=== PATIENT | male | born 1985 | race Caucasian/White ===

== ENCOUNTER 2021-10-28 15:38 | Emergency (ER) | payer MEDICAID ==
[~2021-10-28] VITALS: Ht 162.6 cm; Wt 70.0 kg
[2021-10-28 18:35] LABS: BASOPHILS % 0.2 % (0.0-2.0); HEMATOCRIT. 43.1 % (42.0-52.0); HEMOGLOBIN. 14.4 g/dL (14.0-18.0); LYMPHOCYTES % 4.5 % (20.0-50.0); MEAN CORPUSCULAR HEMOGLOBIN 28.4 pg (28.0-32.0); MEAN PLATELET VOLUME 7.1 fl (7.4-10.4); MONOCYTES % 5.4 % (2.0-8.0); NEUTROPHILS % 89.9 % (40.0-76.0); PLATELET 250 x1000/uL (130-400); RED BLOOD CELL COUNT 5.07 mill/uL (4.7-6.1); RED CELL DISTRIBUTION WIDTH 13.9 % (11.6-14.6)
[2021-10-28 18:40] LABS: CHLORIDE 108 mEq/L (98-107)
[2021-10-28 19:50] VITALS: BP 130/83
== END 2021-10-28 20:33 | disposition home or self-care (01) ==
LOC: ER 15:38
DX: G40.909 Epilepsy, unspecified, not intractable, without status epilepticus (principal); F32.A Depression, unspecified; F79 Unspecified intellectual disabilities
CPT/HCPCS: 36415; 80053; 85025; 99283

== ENCOUNTER 2022-08-10 17:57 | Inpatient (IN) | payer MEDICARE, MEDICAID ==
[~2022-08-10] VITALS: Ht 162.6 cm; Wt 59.0 kg
[2022-08-10] MEDS ORDERED: ONDANSETRON HCL 4MG/2ML INJ IV STA (18:11)
[2022-08-10] MEDS ORDERED: SODIUM CHLORIDE 0.9% 1,000 ML IV ONE ×2 (18:15→19:45)
[2022-08-10] MEDS ORDERED: TETANUS, DIPHTHERIA, PERTUSSIS VAC/PF 0.5ML (>10YR OLD) IM ONE (18:30)
[2022-08-10 18:31] LABS: HEMATOCRIT. 49.7 % (42.0-52.0); HEMOGLOBIN. 16.4 g/dL (14.0-18.0); MEAN CORPUSCULAR HEMOGLOBIN 30.3 pg (28.0-32.0); MEAN CORPUSCULAR VOLUME 91.9 fL (80.0-94.0); MEAN PLATELET VOLUME 7.5 fl (7.4-10.4); PLATELET 390 x1000/uL (130-400); RED BLOOD CELL COUNT 5.41 mill/uL (4.7-6.1); RED CELL DISTRIBUTION WIDTH 14.3 % (11.6-14.6)
[2022-08-10 18:51] LABS: CHLORIDE 99 mEq/L (98-107)
[2022-08-10 18:55] LABS: PLATELET ESTIMATE NORMAL
[2022-08-10 19:24] LABS: CLARITY URINE CLOUDY (CLEAR); COLOR URINE YELLOW (YELLOW); KETONES URINE TRACE (NEGATIVE); LEUKOCYTE ESTERASE URINE NEGATIVE (NEGATIVE); NITRITE URINE NEGATIVE (NEGATIVE); OCCULT BLOOD URINE 1+ (NEGATIVE); PH URINE 5.5 (4.5-8.0); PROTEIN URINE 2+ (NEGATIVE); SPECIFIC GRAVITY URINE 1.016 (1.005-1.030); UROBILINOGEN URINE 0.2 E.U./dL (0.2-1.0)
[2022-08-10 19:28] LABS: ETHANOL BLOOD < 10 mg/dL; VALPROIC ACID < 3.0 ug/mL (50-100)
[2022-08-10 19:37] LABS: *AMPHETAMINES SCREEN URINE NEGATIVE (NEGATIVE); *BARBITURATES SCREEN URINE NEGATIVE (NEGATIVE); *BENZODIAZEPINES SCREEN URINE PRESUMTIVE POSITIVE (NEGATIVE); *COCAINE SCREEN URINE NEGATIVE (NEGATIVE); CANNABINOID URINE SCREEN NEGATIVE (NEGATIVE); METHADONE URINE SCREEN NEGATIVE (NEGATIVE); OPIATES URINE SCREEN NEGATIVE (NEGATIVE); PHENCYCLIDINE URINE SCREEN NEGATIVE (NEGATIVE)
[2022-08-10] MEDS ORDERED: SODIUM BICARBONATE 8.4% 1 MEQ/ML 50ML SYR IV NR (19:45)
[2022-08-10] MEDS ORDERED: LEVETIRACETAM 500MG PREMIX 100 ML IV NR (20:00)
[2022-08-10 20:18] LABS: BG BASE EXCESS -6.1 mmol/L (-2.0-2.0); BG CARBOXYHEMOGLOBIN 0.2 % (0.5-1.5); BG DEOXYHEMOGLOBIN 2.2 % (0.0-5.0); BG HCO3 ACT 16.6 mmol/L (22.0-26.0); BG METHEMOGLOBIN 0.5 % (0.0-1.5); BG OXYGEN SATURATION 97.8 % (92.0-98.5); BG OXYHEMOGLOBIN 97.1 % (94.0-97.0); BG PCO2 26.2 mmHg (35.0-45.0); BG PH 7.419 (7.350-7.450); BG PO2 100.4 mmHg (75.0-100.0); BG SAMPLE SITE RIGHT BRACHIAL; BG TOTAL HEMOGLOBIN 14.9 g/dL (12.0-18.0); BG VENT MODE ROOM AIR
[2022-08-11] MEDS ORDERED: LORAZEPAM 0.5MG TABLET PO PRN (01:15)
[2022-08-11] MEDS ORDERED: GUAIFENESIN 200MG/10ML SUGAR FREE UDC PO PRN (01:15)
[2022-08-11] MEDS ORDERED: NA PHOS,M-B/NA PHOS,DI-BA ENEMA 118ML PR PRN (01:15)
[2022-08-11] MEDS ORDERED: MAGNESIUM/ALUMINUM HYDROXIDE/SIMETHICONE 30ML UDC PO PRN (01:15)
[2022-08-11] MEDS ORDERED: HYDROCODONE/APAP 7.5/325MG 1 TAB TABLET PO PRN (01:15)
[2022-08-11] MEDS ORDERED: DOCUSATE SODIUM 100MG CAPSULE PO PRN (01:15)
[2022-08-11] MEDS ORDERED: IPRATROPIUM/ALBUTEROL 0.5-3(2.5)MG/3ML NEB HHN PRN (01:15)
[2022-08-11] MEDS ORDERED: CLONIDINE 0.1MG TABLET PO PRN (01:15)
[2022-08-11] MEDS ORDERED: ONDANSETRON HCL 4MG/2ML INJ IV PRN (01:15)
[2022-08-11] MEDS ORDERED: HYDROCODONE/ACETAMINOPHEN 5/325MG TABLET PO PRN (01:15)
[2022-08-11] MEDS ORDERED: ACETAMINOPHEN 325MG TABLET PO PRN ×2 (01:15)
[2022-08-11] MEDS ORDERED: NALOXONE HCL 0.4MG/ML VIAL IV PRN (01:30)
[2022-08-11] MEDS ORDERED: VANCOMYCIN 1.25GM PMX (XELLIA) 250 ML IV NR ×2 (02:30→07:30)
[2022-08-11] MEDS ORDERED: PIPERACILLIN/TAZ 3.375G PREMIX 50 ML IV NR (04:00)
[2022-08-11 04:09] LABS: CHLORIDE 109 mEq/L (98-107)
[2022-08-11 04:13] VITALS: BP 127/60
[2022-08-11 05:00] VITALS: BP 122/60
[2022-08-11] MEDS ORDERED: PIPERACILLIN/TAZOBACTAM 3.375 G in DEXTROSE 5% WATER 50 ML IV SCH ×2 (07:00→14:00)
[2022-08-11 07:52] LABS: EOSINOPHILS % 0.1 % (0.0-5.0); HEMATOCRIT. 39.4 % (42.0-52.0); HEMOGLOBIN. 13.7 g/dL (14.0-18.0); MEAN CORPUSCULAR HEMOGLOBIN 29.5 pg (28.0-32.0); MEAN CORPUSCULAR VOLUME 85.2 fL (80.0-94.0); MONOCYTES % 10.7 % (2.0-8.0); NEUTROPHILS % 79.2 % (40.0-76.0); PLATELET 225 x1000/uL (130-400); RED BLOOD CELL COUNT 4.63 mill/uL (4.7-6.1); RED CELL DISTRIBUTION WIDTH 14.1 % (11.6-14.6)
[2022-08-11 08:00] VITALS: BP 111/57
[2022-08-11 08:10] LABS: CHLORIDE 107 mEq/L (98-107); CREATINE KINASE 534 IU/L (39-308); PHOSPHORUS 3.6 mg/dL (2.5-4.9)
[2022-08-11 08:17] LABS: HDL CHOLESTEROL 42 mg/dL (40-59); LDL CHOLESTEROL 130 mg/dL (5-100)
[2022-08-11] MEDS ORDERED: ENOXAPARIN 40MG/0.4ML SYR SUBCUT SCH (09:00)
[2022-08-11] MEDS: LEVETIRACETAM 250MG TABLET PO SCH ×2 (09:00→20:27)
[2022-08-11] MEDS: SODIUM CHLORIDE 0.9% 1,000 ML IV SCH ×2 (10:57→21:15)
[2022-08-11 12:00] VITALS: BP 115/67
[2022-08-11] MEDS: PIPERACILLIN/TAZOBACTAM 3.375 G in DEXTROSE 5% WATER 50 ML IV SCH ×2 (14:00→21:58)
[2022-08-11] MEDS ORDERED: LORAZEPAM 2MG/ML CPJ IM PRN (14:45)
[2022-08-11] MEDS ORDERED: POTASSIUM CHLORIDE 10MEQ TABLET SR PO ONE (15:00)
[2022-08-11 15:59] VITALS: BP 112/71
[2022-08-11 17:03] LABS: CREATINE KINASE 568 IU/L (39-308)
[2022-08-11 20:00] VITALS: BP 119/79
[2022-08-11] MEDS: VANCOMYCIN 750MG PMX (XELLIA) 150 ML IV SCH (20:00)
[2022-08-11] MEDS ORDERED: FAMOTIDINE 20MG TABLET PO SCH (21:00)
[2022-08-12] VITALS: BP 112/72
[2022-08-12 04:00] VITALS: BP 115/73
[2022-08-12] MEDS: PIPERACILLIN/TAZOBACTAM 3.375 G in DEXTROSE 5% WATER 50 ML IV SCH (05:56)
[2022-08-12] MEDS: SODIUM CHLORIDE 0.9% 1,000 ML IV SCH (07:15)
[2022-08-12 07:28] LABS: BASOPHILS % 0.2 % (0.0-2.0); EOSINOPHILS % 0.3 % (0.0-5.0); HEMATOCRIT. 37.5 % (42.0-52.0); LYMPHOCYTES % 13.8 % (20.0-50.0); MEAN CORPUSCULAR HEMOGLOBIN 29.6 pg (28.0-32.0); MEAN CORPUSCULAR VOLUME 85.3 fL (80.0-94.0); MONOCYTES % 12.4 % (2.0-8.0); NEUTROPHILS % 73.3 % (40.0-76.0); PLATELET 197 x1000/uL (130-400); RED CELL DISTRIBUTION WIDTH 14.1 % (11.6-14.6)
[2022-08-12 08:00] VITALS: BP 116/66
[2022-08-12] MEDS: VANCOMYCIN 750MG PMX (XELLIA) 150 ML IV SCH (08:00)
[2022-08-12 08:25] LABS: CHLORIDE 109 mEq/L (98-107)
[2022-08-12] MEDS: LEVETIRACETAM 250MG TABLET PO SCH (08:39)
[2022-08-12 09:44] LABS: BG BASE EXCESS -2.5 mmol/L (-2.0-2.0); BG CARBOXYHEMOGLOBIN 0.6 % (0.5-1.5); BG DEOXYHEMOGLOBIN 1.6 % (0.0-5.0); BG FRACTION INSPIRED OXYGEN 21; BG HCO3 ACT 20.8 mmol/L (22.0-26.0); BG METHEMOGLOBIN 0.3 % (0.0-1.5); BG OXYGEN SATURATION 98.4 % (92.0-98.5); BG OXYHEMOGLOBIN 97.5 % (94.0-97.0); BG PH 7.431 (7.350-7.450); BG PO2 111.8 mmHg (75.0-100.0); BG SAMPLE SITE RIGHT BRACHIAL; BG TOTAL HEMOGLOBIN 14.4 g/dL (12.0-18.0); BG VENT MODE ROOM AIR
[2022-08-12 11:37] VITALS: BP 116/66
== END 2022-08-12 13:00 | disposition home or self-care (01) | DRG 101 ==
LOC: ER 17:57 → MICUSO 22:29 → EDBEDREQTM 22:49 → EDBEDREQ 22:49 → 6WST 08-11 03:50
PROVIDERS: ADMIT Hospitalist; ATTEND Hospitalist
PROC: 4A00X4Z Measurement of Central Nervous Electrical Activity, External Approach (ICD-10-PCS; principal; 2022-08-12)
DX: R56.9 Unspecified convulsions (principal); E87.20 Acidosis, unspecified; R65.10 Systemic inflammatory response syndrome (SIRS) of non-infectious origin without acute organ dysfunction; S00.01XA Abrasion of scalp, initial encounter; F32.A Depression, unspecified; F41.9 Anxiety disorder, unspecified; F80.9 Developmental disorder of speech and language, unspecified; Z91.14 Patient's other noncompliance with medication regimen; W18.30XA Fall on same level, unspecified, initial encounter; Y93.89 Activity, other specified; Y92.89 Other specified places as the place of occurrence of the external cause; Y99.8 Other external cause status
CPT/HCPCS: 36415; 36600; 71045; 76700; 80053; 80061; 80165; 80185; 80305; 80320; 81003; 82375; 82542; 82550; 82805; 83036; 83605; 83735; 84100; 84145; 84439; 84443; 84481; 84484; 85025; 93005; 99285; J1953; J2405; J2543; J3370; J3490; J7030; J7060; G0480

== ENCOUNTER 2024-10-20 13:34 | Emergency (ER) | payer MEDICARE, MEDICAID ==
[~2024-10-20] VITALS: Ht 165.1 cm; Wt 65.0 kg
[2024-10-20] MEDS ORDERED: TETANUS, DIPHTHERIA, PERTUSSIS VAC/PF 0.5ML (>10YR OLD) IM ONE (13:45)
[2024-10-20 13:51] VITALS: O2SAT 99
[2024-10-20 14:23] VITALS: BP 121/80; PULSE 98; RESP 18; TEMP 36.66960; O2SAT 99
[2024-10-20] MEDS: TETANUS, DIPHTHERIA, PERTUSSIS VAC/PF 0.5ML (>10YR OLD) IM ONE (15:45)
[2024-10-20] MEDS ORDERED: BO1 TP (16:29)
== END 2024-10-20 16:55 | disposition home or self-care (01) ==
LOC: ER 13:34
DX: S01.01XA Laceration without foreign body of scalp, initial encounter (principal); F19.90 Other psychoactive substance use, unspecified, uncomplicated; F32.A Depression, unspecified; Y08.89XA Assault by other specified means, initial encounter; Y93.89 Activity, other specified; Y92.89 Other specified places as the place of occurrence of the external cause; Y99.8 Other external cause status
CPT/HCPCS: 12001; 73030; 73120; 90471; 90715; 99285

== ENCOUNTER 2024-11-04 16:31 | Emergency (ER) | payer MEDICARE, MEDICAID ==
[~2024-11-04] VITALS: Ht 154.9 cm; Wt 69.0 kg
[~2024-11-04 16:31] MED LIST: BO1 TP
[2024-11-04 16:56] VITALS: BP 150/87; PULSE 100; RESP 16; TEMP 98.6; O2SAT 96
[2024-11-04] MEDS: LEVETIRACETAM 500MG PREMIX 100 ML IV ONE (18:54)
[2024-11-04] MEDS: SODIUM CHLORIDE 0.9% 1,000 ML IV ONE (18:54)
[2024-11-04] MEDS: LORAZEPAM 2MG/ML INJ IM ONE (18:55)
[2024-11-04 19:10] LABS: BASOPHILS % 0.1 % (0.0-2.0); EOSINOPHILS % 0.5 % (0.0-5.0); HEMATOCRIT. 46.1 % (42.0-52.0); HEMOGLOBIN. 14.5 g/dL (14.0-18.0); LYMPHOCYTES % 25.2 % (20.0-50.0); MEAN CORPUSCULAR HEMOGLOBIN 28.9 pg (28.0-32.0); MEAN CORPUSCULAR HGB CONC 31.5 g/dL (31.0-37.0); MEAN CORPUSCULAR VOLUME 91.9 fL (80.0-94.0); MEAN PLATELET VOLUME 8.1 fl (7.4-10.4); MONOCYTES % 10.5 % (2.0-8.0); NEUTROPHILS % 63.7 % (40.0-76.0); PLATELET 341 x1000/uL (130-400); RED BLOOD CELL COUNT 5.01 mill/uL (4.7-6.1); WHITE BLOOD COUNT 17.9 x1000/uL (4.5-11.0)
[2024-11-04 19:16] LABS: CHLORIDE 104 mEq/L (98-107); POTASSIUM 2.9 mEq/L (3.5-5.1); SODIUM 142 mEq/L (136-145)
[2024-11-04 19:17] LABS: CALCIUM 10.1 mg/dL (8.7-10.4); CARBON DIOXIDE 11 mEq/L (21-32)
[2024-11-04 19:22] LABS: GLUCOSE 167 mg/dL (70-105); UREA NITROGEN BLOOD 20 mg/dL (9-23)
[2024-11-04 19:27] LABS: TROPONIN I HIGH SENSITIVITY < 4 ng/L (3.0-53)
[2024-11-04] MEDS ORDERED: KCL 20MEQ/100ML PREMIX 100 ML IV ONE (19:45)
[2024-11-04 22:40] LABS: PARTIAL THROMBOPLASTIN TIME 26.6 sec (23.4-31.0); PROTHROMBIN TIME 11.4 sec (9.6-11.0)
[2024-11-05] MEDS ORDERED: ACETAMINOPHEN 325MG TABLET PO PRN (00:45)
[2024-11-05] MEDS ORDERED: SODIUM CHLORIDE 0.9% 1,000 ML IV SCH (00:45)
[2024-11-05] MEDS ORDERED: LORAZEPAM 2MG/ML INJ IV PRN (00:45)
[2024-11-05] MEDS ORDERED: CLONIDINE 0.1MG TABLET PO PRN (00:45)
[2024-11-05] MEDS ORDERED: ZOLPIDEM TARTRATE 5MG TABLET PO PRN (00:45)
[2024-11-05] MEDS ORDERED: IPRATROPIUM/ALBUTEROL 0.5-3(2.5)MG/3ML NEB NEB PRN (00:45)
[2024-11-05] MEDS ORDERED: ONDANSETRON HCL 4MG/2ML INJ IV PRN (00:45)
[2024-11-05] MEDS ORDERED: LEVETIRACETAM 500MG PREMIX 100 ML IV SCH (09:00)
[2024-11-05] MEDS ORDERED: ENOXAPARIN 40MG/0.4ML SYR SUBCUT SCH (09:00)
== END 2024-11-05 00:09 | disposition left against medical advice (07) ==
LOC: ER 16:31 → EDBEDREQ 19:54 → EDBEDREQSVC 19:54 → EDBEDREQTM 19:54 → ER 11-05 00:09
DX: S01.01XD Laceration without foreign body of scalp, subsequent encounter (principal); E87.6 Hypokalemia; G40.909 Epilepsy, unspecified, not intractable, without status epilepticus; Z98.890 Other specified postprocedural states; X58.XXXD Exposure to other specified factors, subsequent encounter
CPT/HCPCS: 99285; 96374; 70450; 96361; 80048; 85025; 85610; 85730; 84484; 36415; 96372; J1953; J2060; J7030; 96375